=== PATIENT | male | born 1965 | race Caucasian/White ===

== ENCOUNTER 2016-07-27 15:28 | Emergency (ER) | payer OTHER ==
[2016-07-27 16:01] VITALS: BP 141/94; PULSE 80; TEMP 98.4; BMI 31.3
--- NOTE | 2016-07-27 17:05 | PDOC ---
History of Present Illness - General Stated Complaint: LT LEG PAIN Time Seen by Provider: 07/27/16 16:52 History Source: Patient Exam Limitations: No Limitations - History of Present Illness Initial Comments: 07/27/16 16:59 51 yr male with left lower leg pain for one month after jogging. Pt denies direct trauma, has been applying warm compresses, taking advil with no relief. Pt has no medical history or allergies, no foreign travel , non smoker no ETOH or drug use. Occurred: reports: other (1 month ) Severity: Yes: mild Lower Extremity Pain Location: left: leg Past History - Past Medical History Allergies/Adverse Reactions: Allergies Allergy/AdvReac Type Severity Reaction Status Date / Time No Known Allergies Allergy Verified 07/27/16 15:58 Home Medications: Ambulatory Orders Famotidine [Pepcid] 20 mg PO DAILY #30 tablet 10/15/12 No Home Medications 0 dose .ROUTE UTDICT 10/15/12 Ondansetron [Zofran *Odt*] 4 mg SL TID PRN #20 od.tablet 10/15/12 Cyclobenzaprine HCl [Flexeril -] 10 mg PO TID PRN #11 tablet 07/27/16 Naproxen [Naprosyn -] 500 mg PO BID PRN #14 tablet 07/27/16 Anemia: No Asthma: No Cancer: No GI Disorders: Yes (GASTRITIS, HIATAL HERNIA) - Surgical History Abdominal Surgery: No Appendectomy: No Cardiac Surgery: No Cholecystectomy: No - Psycho/Social/Smoking Cessation Hx Anxiety: No Suicidal Ideation: No Smoking Status: No Smoking History: Never smoked Have you smoked in the past 12 months: No Number of Cigarettes Smoked Daily: 0 Information on smoking cessation initiated: No Hx Alcohol Use: No Drug/Substance Use Hx: No Hx Substance Use Treatment: No Review of Systems - Review of Systems Able to Perform ROS?: Yes Is the patient limited Spanish proficient: No Constitutional: No: Symptoms Reported HEENTM: No: Symptoms Reported Respiratory: No: Symptoms reported Cardiac (ROS): No: Symptoms Reported ABD/GI: No: Symptoms Reported : No: Symptoms Reported Musculoskeletal: No: Symptoms Reported Integumentary: No: Symptoms Reported *Physical Exam - Vital Signs Last Vital Signs Temp Pulse Resp BP Pulse Ox 98.4 F 80 17 141/94 99 07/27/16 16:00 07/27/16 16:00 07/27/16 16:00 07/27/16 16:00 07/27/16 16:00 - Physical Exam General Appearance: Yes: Nourished, Appropriately Dressed HEENT: positive: EOMI, COMPA, Normal ENT Inspection Neck: positive: Supple Respiratory/Chest: positive: Lungs Clear, Normal Breath Sounds Cardiovascular: positive: Regular Rhythm, Regular Rate Musculoskeletal: positive: Normal Inspection Extremity: positive: Normal Capillary Refill, Normal Inspection, Normal Range of Motion, Calf Tenderness. negative: Pedal Edema, Erythema, Inflammation Integumentary: positive: Normal Color, Dry, Warm. negative: Swelling, Ecchymosis, Bruising Neurologic: positive: Fully Oriented, Alert, Normal Mood/Affect, Normal Response , Motor Strength 5/5. negative: Facial Droop, Numbness Procedures - Additional Procedures Progress: 07/27/16 19:36 Name: Chao Person : 1965 Sex: M Study Date & Time: 07/27/201618:38:12 Description: DUPLEX VASCULAR US-1 LEG Thermodynamics Engineer: (dilia) Begin of Report Content Referring Physician: Janette Diego Patient Name: Raza Guidry THIS IS A PRELIMINARY REPORT FROM [facility] DATE OF SERVICE: 2014-12-13 13:36:06.0 IMAGES: 26 EXAM: Venous Doppler imaging of the left lower extremity HISTORY:Possible deep venous thrombosis COMPARISON: None. FINDINGS:Spectral color flow Doppler imaging of the venous system of the left lower extremity is negative for deep venous thrombosis. IMPRESSION: Negative study THIS DOCUMENT HAS BEEN ELECTRONICALLY SIGNED Kenan Stanton MD 07/27/2016 19:31 EST ED Treatment Course - RADIOLOGY Radiology Studies Ordered: Category Date Time Status DUPLEX VASCUL US-1 LEG [US] Stat Ultrasound 07/27/16 16:59 Ordered Medical Decision Making - Medical Decision Making 07/27/16 17:07 cc: left lower leg, calf pain for one month will r/o DVT tender to palpation left lower anterior piña no bony tenderness , nv intact pt has FROM of the extremity 07/27/16 19:37 US is negative for DVT will dc home with muscle relaxant and NSAID and follow up with orthopedist discussed with patient the plan of care *DC/Admit/Observation/Transfer Diagnosis at time of Disposition: Muscle strain of left lower extremity Qualifiers: Encounter type: initial encounter Qualified Code(s): S86.912A - Strain of unspecified muscle(s) and tendon(s) at lower leg level, left leg, initial encounter - Discharge Dispostion Disposition: HOME Condition at time of disposition: Good - Prescriptions Prescriptions: Cyclobenzaprine HCl [Flexeril -] 10 mg PO TID PRN #11 tablet PRN Reason: Muscle Spasms Naproxen [Naprosyn -] 500 mg PO BID PRN #14 tablet PRN Reason: Pain - Referrals Referrals: Marium Austin MD [Primary Care Provider] - Hernán Severino MD [Staff Physician] - - Patient Instructions Additional Instructions: follow with the orthopedist for follow up call tomorrow to make appointment for this week or next week take the muscle relaxant flexeril and naprosyn for pain as needed the muscle relaxant may make you sleepy DO NOT DRIVE OR OPERATE MACHINERY IF YOU TAKE THIS MEDICINE no physical activity until cleared by the orthopedist
== END 2016-07-27 20:07 | disposition home or self-care (01) ==
LOC: JERFT 15:28
DX: S86.912A Strain of unspecified muscle(s) and tendon(s) at lower leg level, left leg, initial encounter (principal); X50.3XXA Overexertion from repetitive movements, initial encounter; Y93.02 Activity, running; Y92.89 Other specified places as the place of occurrence of the external cause; Y99.8 Other external cause status
CPT/HCPCS: 93971-TC; 99281-25

== ENCOUNTER 2021-08-11 13:02 | Emergency (ER) | payer OTHER ==
[2021-08-11 13:20] VITALS: TEMP 98.4; BMI 29.9
[2021-08-11 15:21] LABS: BASO % 0.5 % (0-2.0); EOS % 0.4 % (0-4.5); HEMATOCRIT 47.3 % (35.4-49); HEMOGLOBIN 15.4 GM/dL (11.7-16.9); MCH 29.5 pg (25.7-33.7); MCHC 32.7 g/dl (32.0-35.9); MEAN CELL VOLUME 90.2 fl (80-96); MEAN PLT VOLUME 10.6 fl (7.5-11.1); MONO % 7.7 % (3.8-10.2); NEUT % 59.4 % (42.8-82.8); PLATELET COUNT 215 10^3/uL (134-434); RBC 5.24 M/mm3 (4.00-5.60); RDW 13.4 % (11.9-15.9); WHITE BLOOD COUNT 7.4 K/mm3 (4.0-10.0)
[2021-08-11 15:41] LABS: CHLORIDE 103 mmol/L (98-107); SODIUM 139 mmol/L (136-145)
[2021-08-11 15:42] LABS: INR 1.15 (0.83-1.09); PROTHROMBIN TIME (PATIENT) 13.3 SEC (9.7-13.0)
[2021-08-11 15:45] LABS: ACTIVATED PTT 31.3 SECONDS (25.2-36.5)
[2021-08-11 15:48] LABS: BLOOD UREA NITROGEN 12.2 mg/dL (7-18)
[2021-08-11 15:49] LABS: ALBUMIN 4.4 g/dl (3.4-5.0); ANION GAP 9 MMOL/L (8-16); CALCIUM 9.6 mg/dL (8.5-10.1); CO2 26 mmol/L (21-32); GLUCOSE,RANDOM 99 mg/dL (74-106); MAGNESIUM 2.2 mg/dL (1.8-2.4)
[2021-08-11 15:51] LABS: SGPT/ALT 33 U/L (13-61)
[2021-08-11 15:53] LABS: BILIRUBIN,TOTAL 0.4 mg/dL (0.2-1); SGOT/AST 28 U/L (15-37)
[2021-08-11 15:54] LABS: ALK PHOS 85 U/L (45-117)
[2021-08-11 16:46] LABS: PH,URINE 5.5 (5.0-8.0); URINE APPEARANCE CLEAR; URINE BILIRUBIN NEGATIVE (NEGATIVE); URINE COLOR YELLOW; URINE GLUCOSE (UA) NEGATIVE (NEGATIVE); URINE KETONE NEGATIVE (NEGATIVE); URINE LEUK ESTERASE NEGATIVE (NEGATIVE); URINE NITRITE NEGATIVE (NEGATIVE); URINE PROTEIN NEGATIVE (NEGATIVE); URINE UROBILINOGEN 0.2 mg/dL (0.2-1.0)
[2021-08-11 17:22] VITALS: BP 145/89; PULSE 80
== END 2021-08-11 17:23 | disposition home or self-care (01) ==
LOC: JER 13:02
DX: R07.9 Chest pain, unspecified (principal)
CPT/HCPCS: 36415; 71046-TC-FY; 80053; 81003; 82550; 83735; 84484; 85025; 85379; 85610; 85730; 93005; 93010; 99285-25; C9803; U0003; U0005

== ENCOUNTER 2023-05-06 16:17 | Emergency (ER) | payer OTHER ==
[2023-05-06 16:34] VITALS: TEMP 98.1; BMI 30.5
[2023-05-06 17:49] LABS: BASO % 0.4 % (0-2.0); EOS % 0.2 % (0-4.5); HEMATOCRIT 44.1 % (35.4-49); HEMOGLOBIN 15.5 GM/dL (11.7-16.9); LYMPH % 26.5 % (8-40); MCH 30.7 pg (25.7-33.7); MCHC 35.2 g/dl (32.0-35.9); MEAN PLT VOLUME 9.6 fl (7.5-11.1); MONO % 6.8 % (3.8-10.2); NEUT % 66.1 % (42.8-82.8); PLATELET COUNT 189 10^3/uL (134-434); RBC 5.07 M/mm3 (4.00-5.60); RDW 13.7 % (11.9-15.9); WHITE BLOOD COUNT 8.8 K/mm3 (4.0-10.0)
[2023-05-06 17:58] LABS: INR 1.12 (0.83-1.09)
[2023-05-06 18:00] LABS: ACTIVATED PTT 35.9 SECONDS (25.2-36.5)
[2023-05-06] MEDS ORDERED: MECLIZINE HCL 25 MG TABLET (FP) PO ONE (18:11)
[2023-05-06] MEDS ORDERED: SODIUM CHLORIDE 1,000 ML IV STA (18:12)
[2023-05-06] MEDS ORDERED: MECLIZINE HCL 25 MG TABLET (FP) ONE (18:24)
[2023-05-06 18:28] LABS: POTASSIUM 3.9 mmol/L (3.5-5.1)
[2023-05-06 18:31] LABS: ALBUMIN 4.1 g/dl (3.4-5.0); CALCIUM 9.5 mg/dL (8.5-10.1)
[2023-05-06 18:32] LABS: BLOOD UREA NITROGEN 13.9 mg/dL (7-18)
[2023-05-06 18:33] LABS: CREATININE 1.1 mg/dL (0.55-1.3)
[2023-05-06 18:35] LABS: BILIRUBIN,TOTAL 0.2 mg/dL (0.2-1); TOT PROT 7.5 g/dl (6.4-8.2)
[2023-05-06 20:06] VITALS: BP 143/82; PULSE 62; RESP 18
== END 2023-05-06 21:25 | disposition home or self-care (01) ==
LOC: JER 16:17
PROC: 3E0337Z Introduction of Electrolytic and Water Balance Substance into Peripheral Vein, Percutaneous Approach (ICD-10-PCS; principal; 2023-05-06)
DX: R53.1 Weakness (principal); R42 Dizziness and giddiness; Z20.822 Contact with and (suspected) exposure to COVID-19
CPT/HCPCS: 0241U-QW; 36415; 70450-TC; 71045-TC-FY; 80053; 84484; 85025; 85610; 85730; 93005; 93010; 99285-25

== ENCOUNTER 2024-03-28 07:03 | Emergency (ER) | payer OTHER ==
[2024-03-28 07:09] VITALS: BMI 30.5
[2024-03-28 08:17] LABS: BASO % 0.7 % (0-2.0); EOS % 0.9 % (0-4.5); HEMATOCRIT 46.7 % (35.4-49); LYMPH % 25.1 % (8-40); MCHC 34.2 g/dl (32.0-35.9); MEAN CELL VOLUME 90.7 fl (80-96); MEAN PLT VOLUME 9.7 fl (7.5-11.1); MONO % 5.4 % (3.8-10.2); NEUT % 67.9 % (42.8-82.8); PLATELET COUNT 182 10^3/uL (134-434); RBC 5.15 M/mm3 (4.00-5.60); RDW 13.7 % (11.9-15.9); WHITE BLOOD COUNT 6.4 K/mm3 (4.0-10.0)
[2024-03-28 08:20] LABS: URINE APPEARANCE CLEAR; URINE BILIRUBIN NEGATIVE (NEGATIVE); URINE COLOR YELLOW; URINE GLUCOSE (UA) NEGATIVE (NEGATIVE); URINE KETONE NEGATIVE (NEGATIVE); URINE LEUK ESTERASE NEGATIVE (NEGATIVE); URINE NITRITE NEGATIVE (NEGATIVE); URINE PROTEIN NEGATIVE (NEGATIVE); URINE UROBILINOGEN 0.2 mg/dL (0.2-1.0)
[2024-03-28 08:33] LABS: POTASSIUM 3.6 mmol/L (3.5-5.1)
[2024-03-28 08:35] LABS: ALBUMIN 4.4 g/dl (3.4-5.0); BLOOD UREA NITROGEN 11.2 mg/dL (7-18); CALCIUM 9.4 mg/dL (8.5-10.1)
[2024-03-28 08:38] LABS: CREATININE 1.1 mg/dL (0.55-1.3)
[2024-03-28 08:39] LABS: PHOSPHOROUS 1.2 mg/dL (2.5-4.9)
[2024-03-28 08:40] LABS: BILIRUBIN,TOTAL 0.4 mg/dL (0.2-1); TOT PROT 8.2 g/dl (6.4-8.2)
[2024-03-28] MEDS ORDERED: METOCLOPRAMIDE HCL INJECTION 10 MG/2 ML VIAL ONE (08:44)
[2024-03-28] MEDS ORDERED: MECLIZINE HCL 25 MG TABLET (FP) ONE (08:44)
[2024-03-28] MEDS: SODIUM CHLORIDE 1,000 ML IV ONE (09:26)
[2024-03-28] MEDS: MECLIZINE HCL 25 MG TABLET (FP) PO ONE (09:27)
[2024-03-28] MEDS: METOCLOPRAMIDE HCL INJECTION 10 MG/2 ML VIAL IVPUSH ONE (09:27)
[2024-03-28] MEDS ORDERED: NAPH,MB-DB/K PH,MBDB POWDER PACKET ONE (12:11)
[2024-03-28] MEDS: NAPH,MB-DB/K PH,MBDB POWDER PACKET PO ONE (12:16)
[2024-03-28 13:20] LABS: HIV INTERPRETATION NEGATIVE (NEGATIVE)
[2024-03-28 13:41] VITALS: BP 141/87; PULSE 79; RESP 20; TEMP 98.4
== END 2024-03-28 14:48 | disposition home or self-care (01) ==
LOC: JER 07:03
PROC: 3E033GC Introduction of Other Therapeutic Substance into Peripheral Vein, Percutaneous Approach (ICD-10-PCS; principal; 2024-03-28)
PROC: 3E0337Z Introduction of Electrolytic and Water Balance Substance into Peripheral Vein, Percutaneous Approach (ICD-10-PCS; 2024-03-28)
DX: R42 Dizziness and giddiness (principal); R11.0 Nausea; R68.83 Chills (without fever); R25.1 Tremor, unspecified; Z20.822 Contact with and (suspected) exposure to COVID-19
CPT/HCPCS: 0241U-QW; 36415; 80053; 81003; 83735; 84100; 85025; 86803; 87389; 93005; 93010; 99284-25

== ENCOUNTER 2025-03-25 19:16 | Observation (INO) | payer OTHER ==
[2025-03-25] MEDS ORDERED: FAMOTIDINE 20 MG/50 ML IVPB 20 MG/50 ML MG IVPB ONE (19:57)
[2025-03-25] MEDS ORDERED: ONDANSETRON 4 MG/2 ML VIAL ONE (19:57)
[2025-03-25] MEDS: SODIUM CHLORIDE 0.9% 1000 ML INFUS.BAG IV STA (20:09)
[2025-03-25] MEDS: ONDANSETRON 4 MG/2 ML VIAL IVPB ONE (20:09)
[2025-03-25] MEDS: FAMOTIDINE 20 MG/50 ML IVPB 20 MG/50 ML MG IVPB ONE (20:09)
[2025-03-25] MEDS ORDERED: LORazepam 2 MG/ML SDV VIAL ONE (20:21)
[2025-03-25] MEDS ORDERED: levETIRAcetam 500 MG/5 ML INJECTION VIAL IVPB ONE (20:47)
[2025-03-25 20:51] LABS: ABSOLUTE IMMATURE GRANULOCYTES 0.02 x10^3/uL (0.0-0.031); BASOPHILS # 0.03 x10^3/uL (0.01-0.08); EOSINOPHIL % 0.2 % (0.8-7.0); EOSINOPHILS # 0.02 x10^3/uL (0.04-0.54); MCHC 34.0 g/dl (32.3-36.5); MEAN CELL VOLUME 88.9 fl (79.0-92.2); MEAN PLT VOLUME 11.2 fl (9.4-12.4); MONOCYTE # 0.65 x10^3/uL (0.30-0.82); MONOCYTE % 7.6 % (5.3-12.2); RDW 12.1 % (12.2-16.1)
[2025-03-25] MEDS: levETIRAcetam 500 MG/5 ML INJECTION VIAL IVPB ONE (20:54)
[2025-03-25 21:08] LABS: BG HCT 47.0 % (35.4-49); VENOUS BASE EXCESS 0.7 mmol/L (-2-2); VENOUS O2 SATURATION 49.6 % (70-80); VENOUS PCO2 45.5 mmHg (38-52); VENOUS PH 7.38 (7.310-7.410)
[2025-03-25 21:09] LABS: INR 1.19 (0.83-1.09); PROTHROMBIN TIME (PATIENT) 13.0 SEC (9.7-13.0)
[2025-03-25 21:12] LABS: ACTIVATED PTT 29.0 SECONDS (25.2-36.5)
[2025-03-25 21:14] LABS: GLUCOSE,RANDOM 126 mg/dL (74-106)
[2025-03-25 21:15] LABS: TOT PROT 7.6 g/dl (6.4-8.2)
[2025-03-25 21:16] LABS: CO2 25 mmol/L (21-32)
[2025-03-25 21:17] LABS: ALK PHOS 88 U/L (40-150)
[2025-03-25 21:20] LABS: SGOT/AST 26 U/L (5-34); SGPT/ALT 35 U/L (0-55)
[2025-03-25 21:21] LABS: CREATININE 0.96 mg/dL (0.55-1.3)
[2025-03-25 21:43] LABS: HIV INTERPRETATION NEGATIVE (NEGATIVE)
[2025-03-25 21:46] LABS: LACTIC ACID 2.4 mmol/L (0.4-2.0)
[2025-03-25 22:10] LABS: HCV DIAGNOSTIC IN-HOUSE W/RFLX NON-REACTIVE (NONREACTIVE)
[2025-03-25] MEDS: SODIUM CHLORIDE 0.9% 500 ML INFUS.BAG IV ONE (22:10)
[2025-03-25 22:37] LABS: URINE APPEARANCE CLEAR; URINE BILIRUBIN NEGATIVE (NEGATIVE); URINE COLOR YELLOW; URINE GLUCOSE (UA) NEGATIVE (NEGATIVE); URINE KETONE NEGATIVE (NEGATIVE); URINE LEUK ESTERASE NEGATIVE (NEGATIVE); URINE NITRITE NEGATIVE (NEGATIVE); URINE PROTEIN NEGATIVE (NEGATIVE); URINE UROBILINOGEN 0.2 mg/dL (0.2-1.0)
[2025-03-25 22:44] LABS: COCAINE, UR NEGATIVE (NEGATIVE)
[2025-03-25 22:45] LABS: METHADONE, UR NEGATIVE (NEGATIVE); OPIATES, URI NEGATIVE (NEGATIVE); PHENCYCLIDINE,URINE NEGATIVE (NEGATIVE); URINE AMPHETAMINES NEGATIVE (NEGATIVE); URINE BARBITURATES NEGATIVE (NEGATIVE); URINE BENZODIAZEPINES NEGATIVE (NEGATIVE)
[2025-03-25] MEDS: LOSARTAN POTASSIUM 50 MG TABLET PO ONE (23:45)
[2025-03-25] MEDS: PANTOPRAZOLE SODIUM 40 MG VIAL IVPUSH ONE (23:45)
[2025-03-26] MEDS ORDERED: LOSARTAN POTASSIUM 50 MG TABLET ONE ×2 (00:07→11:01)
[2025-03-26] MEDS ORDERED: PANTOPRAZOLE SODIUM 40 MG/100 ML BAG IVPB ONE (00:07)
[2025-03-26] MEDS: levETIRAcetam 500 MG/5 ML INJECTION VIAL IVPB SCH (05:30)
[2025-03-26 06:44] LABS: MCHC 32.8 g/dl (32.3-36.5); MEAN CELL VOLUME 91.4 fl (79.0-92.2); MEAN PLT VOLUME 11.9 fl (9.4-12.4); RDW 12.4 % (12.2-16.1)
[2025-03-26 07:22] LABS: GLUCOSE,RANDOM 99.0 mg/dL (74-106); TOT PROT 6.7 g/dl (6.4-8.2)
[2025-03-26 07:23] LABS: CO2 26.0 mmol/L (21-32)
[2025-03-26] MEDS: MAG HYDROX/AL HYDROX/SIMETH 30 ML UNIT-DOSE CUP PO ONE (07:23)
[2025-03-26 07:24] LABS: ALK PHOS 78.0 U/L (40-150)
[2025-03-26 07:27] LABS: SGOT/AST 27.0 U/L (5-34); SGPT/ALT 35.0 U/L (0-55)
[2025-03-26 07:28] LABS: CREATININE 0.86 mg/dL (0.55-1.3)
[2025-03-26] MEDS ORDERED: levETIRAcetam 500 MG/5 ML INJECTION VIAL IVPB SCH (08:00)
[2025-03-26] MEDS ORDERED: MIDAZOLAM HCL 2 MG/2 ML SINGLE DOSE VIAL IVPUSH PRN (08:26)
[2025-03-26] MEDS ORDERED: ENOXAPARIN NA (PORCINE) 40 MG/0.4 ML DISP.SYRIN SQ SCH (10:00)
[2025-03-26] MEDS ORDERED: PANTOPRAZOLE SODIUM 40 MG VIAL ONE (11:01)
[2025-03-26] MEDS: LOSARTAN POTASSIUM 50 MG TABLET PO SCH (11:39)
[2025-03-26] MEDS: PANTOPRAZOLE SODIUM 40 MG VIAL IVPUSH SCH (11:39)
[2025-03-26 16:21] VITALS: BMI 29.9
[2025-03-27 07:21] LABS: ABSOLUTE IMMATURE GRANULOCYTES 0.01 x10^3/uL (0.0-0.031); BASOPHILS # 0.02 x10^3/uL (0.01-0.08); EOSINOPHIL % 1.1 % (0.8-7.0); EOSINOPHILS # 0.08 x10^3/uL (0.04-0.54); MCHC 32.7 g/dl (32.3-36.5); MEAN CELL VOLUME 91.8 fl (79.0-92.2); MEAN PLT VOLUME 12.0 fl (9.4-12.4); MONOCYTE # 0.59 x10^3/uL (0.30-0.82); MONOCYTE % 7.8 % (5.3-12.2); RDW 12.6 % (12.2-16.1)
[2025-03-27 07:30] LABS: GLUCOSE,RANDOM 87.0 mg/dL (74-106)
[2025-03-27 07:31] LABS: TOT PROT 6.7 g/dl (6.4-8.2)
[2025-03-27 07:32] LABS: CO2 28.0 mmol/L (21-32)
[2025-03-27 07:33] LABS: ALK PHOS 75.0 U/L (40-150)
[2025-03-27 07:36] LABS: CREATININE 1.05 mg/dL (0.55-1.3); SGOT/AST 24.0 U/L (5-34); SGPT/ALT 35.0 U/L (0-55)
[2025-03-27 07:42] LABS: LDL CHOLESTEROL (ONLY SJRH) 101 mg/dL (5-100)
[2025-03-27] MEDS: ENOXAPARIN NA (PORCINE) 40 MG/0.4 ML DISP.SYRIN SQ SCH (09:49)
[2025-03-27] MEDS: MAG HYDROX/AL HYDROX/SIMETH 30 ML UNIT-DOSE CUP PO PRN (14:35)
[2025-03-27] MEDS: amLODIPine BESYLATE 10 MG TABLET (FP) PO ONE (15:56)
[2025-03-27] MEDS ORDERED: ACETAMINOPHEN 500 MG TABLET (FP) PO PRN (17:39)
[2025-03-27] MEDS: ATORVASTATIN CA 20 MG TABLET (FP) PO SCH (21:08)
[2025-03-28] MEDS ORDERED: REGADENOSON 0.4 MG/5 ML PRE-FILLED SYRINGE IVPUSH ONE (10:52)
[2025-03-28] MEDS: REGADENOSON 0.4 MG/5 ML PRE-FILLED SYRINGE IVPUSH ONE (11:10)
[2025-03-28 11:12] VITALS: RESP 18
[2025-03-28 13:10] LABS: ABSOLUTE IMMATURE GRANULOCYTES 0.02 x10^3/uL (0.0-0.031); BASOPHILS # 0.02 x10^3/uL (0.01-0.08); EOSINOPHIL % 0.3 % (0.8-7.0); EOSINOPHILS # 0.02 x10^3/uL (0.04-0.54); MCHC 33.3 g/dl (32.3-36.5); MEAN CELL VOLUME 90.2 fl (79.0-92.2); MEAN PLT VOLUME 11.3 fl (9.4-12.4); MONOCYTE # 0.58 x10^3/uL (0.30-0.82); MONOCYTE % 7.8 % (5.3-12.2); RDW 12.2 % (12.2-16.1)
[2025-03-28 13:31] LABS: GLUCOSE,RANDOM 120.0 mg/dL (74-106); TOT PROT 8.4 g/dl (6.4-8.2)
[2025-03-28 13:32] LABS: CO2 25.0 mmol/L (21-32)
[2025-03-28 13:34] LABS: ALK PHOS 106.0 U/L (40-150)
[2025-03-28] MEDS: amLODIPine BESYLATE 10 MG TABLET (FP) PO SCH (13:34)
[2025-03-28 13:37] LABS: CREATININE 0.88 mg/dL (0.55-1.3); SGOT/AST 29.0 U/L (5-34); SGPT/ALT 42.0 U/L (0-55)
[2025-03-28] MEDS: NAPH,MB-DB/K PH,MBDB POWDER PACKET PO ONE (17:42)
[2025-03-28 18:18] VITALS: BP 145/87; PULSE 70; TEMP 97.7
[2025-03-30 15:07] LABS: RENIN ACTIVITY(PRA) 0.697 ng/mL/hr (0.167-5.380)
== END 2025-03-28 20:03 | disposition home or self-care (01) ==
LOC: JER 19:16 → JERBED 22:13 → J4W 03-26 15:03
PROVIDERS: ADMIT Internal Medicine; ATTEND Internal Medicine
PROC: 3E033GC Introduction of Other Therapeutic Substance into Peripheral Vein, Percutaneous Approach (ICD-10-PCS; principal; 2025-03-25)
PROC: 3E023GC Introduction of Other Therapeutic Substance into Muscle, Percutaneous Approach (ICD-10-PCS; 2025-03-25)
PROC: 3E0337Z Introduction of Electrolytic and Water Balance Substance into Peripheral Vein, Percutaneous Approach (ICD-10-PCS; 2025-03-25)
DX: K21.9 Gastro-esophageal reflux disease without esophagitis (principal); I10 Essential (primary) hypertension; R07.89 Other chest pain; R42 Dizziness and giddiness
CPT/HCPCS: 36415; 70450-TC; 71046-TC-FY; 78452-TC; 80053; 80061; 80307; 81003; 82088; 82550; 82803; 82941; 82962; 83036; 83605; 83735; 83835; 83880; 84100; 84244; 84439; 84443; 84484; 85025; 85027; 85610; 85730; 86618; 86803; 87086; 87389; 87637-QW; 93005; 93010; 93017; 93306-TC; 95816; 99285-25; A9502; G0378; J2785

== ENCOUNTER 2025-05-17 06:22 | Day surgery (SDC) | payer OTHER ==
[2025-05-17 09:50] VITALS: BP 102/63; PULSE 56; RESP 15; TEMP 97.6
== END 2025-05-17 10:21 | disposition home or self-care (01) ==
LOC: JASU-ENDO 06:22
PROVIDERS: ATTEND Internal Medicine Gastroenterology
PROC: 0DB78ZX Excision of Stomach, Pylorus, Via Natural or Artificial Opening Endoscopic, Diagnostic (ICD-10-PCS; 2025-05-17)
PROC: 0DB68ZX Excision of Stomach, Via Natural or Artificial Opening Endoscopic, Diagnostic (ICD-10-PCS; 2025-05-17)
PROC: 0DB58ZX Excision of Esophagus, Via Natural or Artificial Opening Endoscopic, Diagnostic (ICD-10-PCS; principal; 2025-05-17 08:30)
DX: K21.9 Gastro-esophageal reflux disease without esophagitis (principal)
CPT/HCPCS: 88305-TC; 88342-TC